=== PATIENT | male | born 1975 | race Caucasian/White ===

== ENCOUNTER 2020-11-26 09:21 | Outpatient (REF) | payer OTHER, SELFPAY ==
[2020-11-26 11:46] LABS: Alanine Aminotransferase 28 U/L (0-40); Albumin Level 4.6 g/dL (3.5-5.0); Alkaline Phosphatase 79 U/L (39-117); Anion Gap 15 (12-20); Aspartate Amino Transferase 27 U/L (5-37); Bilirubin Total 0.5 mg/dL (0.0-1.0); Blood Urea Nitrogen 18 mg/dL (9-16); Calcium 9.6 mg/dL (8.4-10.2); Carbon Dioxide 28 mmol/L (22-29); Chloride 102 mmol/L (96-108); Cholesterol 246 mg/dL; Estimated Glomerular Filt Rate > 60; Glucose Fasting 97 mg/dL (60-99); HDL Cholesterol 57 mg/dL; LDL Cholesterol Calculated 166 mg/dl; Potassium 4.4 mmol/l (3.3-5.1); Sodium 141 mmol/L (135-145); Total Protein 7.5 g/dL (6.5-8.0); Triglycerides 116 mg/dL
[2020-11-26 12:13] LABS: TSH reflex Free T4 0.88 mIU/mL (0.32-4.0)
[2020-11-30 10:43] LABS: Testosterone, Total 674 ng/dL (250-1100)
== END 2020-11-26 09:22 | disposition home or self-care (01) ==
LOC: HO.HMGCLDS 09:21
PROVIDERS: PCP Nurse Practitioner Family; Visit Provider Nurse Practitioner Family
DX: Z00.00 Encounter for general adult medical examination without abnormal findings (principal); N52.9 Male erectile dysfunction, unspecified
CPT/HCPCS: 36415; 80053; 80061; 84403; 84443

== ENCOUNTER → 2020-11-27 10:04 | Outpatient (BNVA) | payer OTHER, SELFPAY | PROVIDERS: PCP Nurse Practitioner Family; Visit Provider Surgery | DX: N62 Hypertrophy of breast (principal) | CPT/HCPCS: 99202 ==

== ENCOUNTER 2021-01-13 13:20 | Outpatient (REF) | payer OTHER, SELFPAY ==
--- NOTE | ~2021-01-13 | MM_ITS ---
EXAMINATION: MM DIAGNOSTIC DIGITAL BREAST TOMOSYNTHESIS, BILATERAL US DIAGNOSTIC ULTRASOUND BREAST, BILATERAL CLINICAL INFORMATION: 45-year-old male with chronic bilateral subareolar breast tenderness and fullness. No discharge or focal palpable mass. No known family history breast cancer. No prior breast imaging. COMPARISON: None (current study represents initial baseline exam). TECHNIQUE: Digital breast tomosynthesis is performed in both the craniocaudal and mediolateral oblique views along with computer-aided detection (CAD). Synthesized 2D images are generated from the tomosynthesis. Additional left MLO view is provided. Ultrasound bilateral breasts is performed using grayscale imaging and color Doppler without and with harmonics. Retroareolar and periareolar breasts are imaged. FINDINGS: There are scattered areas of fibroglandular density (ACR BI-RADS breast composition Category b). There is gynecomastia parenchymal pattern in the bilateral anterior retroareolar breasts, slightly greater on the left. There is no mass or architectural abnormality. There are no abnormal calcifications. No lymphadenopathy. No skin thickening or coarsening of the stromal markings. Ultrasound bilateral breasts demonstrate gynecomastia type pattern retroareolar region. There is no mass or duct ectasia. No focal architectural abnormality. No skin thickening or edema tracking in the soft tissue planes. Results are discussed with the patient at time of visit. MM/MM tomosynthesis diagnostic BI IMPRESSION: Moderate bilateral gynecomastia retroareolar breasts. ASSESSMENT: BI-RADS 2: Benign RECOMMENDATION: Patient should be managed based on the clinical impression.
== END 2021-01-13 13:21 | disposition home or self-care (01) ==
LOC: HO.MAMMO 13:20
PROVIDERS: PCP Nurse Practitioner Family; Visit Provider Surgery
DX: N62 Hypertrophy of breast (principal)
CPT/HCPCS: 76642; 77062; 77066

== ENCOUNTER → 2021-01-28 09:26 | Outpatient (BNVA) | payer OTHER, SELFPAY | PROVIDERS: PCP Nurse Practitioner Family; Visit Provider Surgery | DX: N62 Hypertrophy of breast (principal); N64.4 Mastodynia | CPT/HCPCS: 99212 ==

== ENCOUNTER → 2021-01-29 14:53 | Outpatient (BNVA) | payer OTHER, SELFPAY | PROVIDERS: PCP Nurse Practitioner Family; Visit Provider Urology ==

== ENCOUNTER 2021-02-03 07:40 | Day surgery (SDC) | payer OTHER, SELFPAY ==
--- NOTE | 2021-01-31 07:47 | P.CONAN_ITS ---
Documented by User: Cheyenne Phillips 01/31/21 07:49 HPI - Anesthesia Eval Consult details Narrative: 45yo M for Excision of Breast Mass x2 PMFSH Active Problems Active Problems: All Active Problems (Updated 11/26/20 @ 17:08 by Jalen Cobos, [facility]) Dyslipidemia (Acute) Gynecomastia (Acute) Physical exam (Acute) Erectile dysfunction (Acute) Opiate abuse, episodic (Acute) Past Medical History Medical History Adjustment disorder with mixed anxiety and depressed mood Chronic pain Dyslipidemia Opiate abuse, episodic Family History Family History Mother History of lung cancer Surgical History Surgical History History of left knee surgery Social History Social History Alcohol intake: current Alcohol intake frequency: a few times a month Smoking Status: Never smoker Use of substances other than those prescribed or required for medical reasons: No Substance Use Type Other:: percocet Advance Directives: No Advance Directives Information Provided: Yes Meds Allergies Allergy/AdvReac Type Severity Reaction Status Date / Time No Known Allergies Allergy Verified 11/11/20 09:30 Home Medications Medication Instructions Recorded Confirmed Last Taken Type methadone 10 mg tablet 35 mg PO DAILY PRN tab 10/24/20 01/28/21 Unknown History meloxicam PO 11/11/20 01/28/21 Unknown History Exam Exam Date and Time: January 31, 2021 0747 Assessment and Plan Assessment Anesthesia Assessment: Chart Reviewed Documented by User: Venessa Bender 02/03/21 09:59 PMFSH Past Medical History Medical History Adjustment disorder with mixed anxiety and depressed mood Chronic pain Dyslipidemia Opiate abuse, episodic Family History Family History Mother History of lung cancer Surgical History Surgical History History of left knee surgery Social History Social History Alcohol intake: current Alcohol intake frequency: a few times a month Smoking Status: Never smoker Use of substances other than those prescribed or required for medical reasons: No Substance Use Type Other:: percocet Advance Directives: No Advance Directives Information Provided: Yes Meds Allergies Allergy/AdvReac Type Severity Reaction Status Date / Time No Known Allergies Allergy Verified 11/11/20 09:30 Home Medications Medication Instructions Recorded Confirmed Last Taken Type methadone 10 mg tablet 35 mg PO DAILY PRN tab 10/24/20 01/28/21 Unknown History meloxicam PO 11/11/20 01/28/21 Unknown History Exam Airway Mallampati Class: II TM Dist: >3cm Neck ROM: Full Loose/Missing/Broken Teeth: No Heart: RRR Lungs: CTA Assessment and Plan Assessment Anesthesia Assessment: Anesthesia Plan Discussed and Chart Reviewed Final Anesthetic Review NPO: Yes ASA Class: II Final Preanesthetic Review: Meds/Allgs Chart Reviewed, Consent Obtained/Reviewed and Anes Risks/Benef Reviewed Patient Risk: Low Procedure Risk: Low Anesthetic Plan Anesthetic Plan: GA Disposition: Standard PACU
[2021-02-03 08:01] VITALS: BP 103/54; PULSE 71; RESP 18; TEMP 36.8; O2SAT 97; BMI 32.1
[2021-02-03] MEDS: Lactated Ringers 1,000 ML 100 ML IVCONT (08:20)
--- NOTE | 2021-02-03 10:22 | MHC.SHP ---
Pre-Procedural Eval Section A The patient is an INPATIENT: No Changes since office visit: Yes Patient answered all questions; No Cold of Flu in the past 2 weeks, No New Medical Problems and No Changes in Medication The History & Physical has been completed within 30 days and I have reviewed it.: Yes Section B Chief Complaint: Gynecomastia Allergies: Allergies Allergy/AdvReac Type Severity Reaction Status Date / Time No Known Allergies Allergy Verified 11/11/20 09:30 Plan Diagnosis/Plan: Unchanged I have reviewed the history and physical and performed a pertinent physical examination on my patient. No changes have occurred unless specified.
[2021-02-03 12:10] VITALS: BP 136/67; PULSE 73; RESP 16; TEMP 36.2; O2SAT 100
--- NOTE | 2021-02-03 12:13 | PM.OP ---
Brief Operative Note Date of Service: 02/03/21 Pre-op diagnosis: bilateral breast mass Post-op diagnosis: same Procedure: excision of bilateral breast masses Surgeon: DENA ASIF MD Anesthesia: GLMA Quality Assurance Test Program Manager: Radha Correia Estimated blood loss (mL): 5 Pathology: other (left and right breast mass) Condition: stable Disposition: PACU
[2021-02-03 12:15] VITALS: BP 136/70; PULSE 74; RESP 17; O2SAT 96
[2021-02-03 12:20] VITALS: BP 145/66; PULSE 1; RESP 17; O2SAT 97
--- NOTE | 2021-02-03 12:21 | P.OP_ITS ---
Operative Note Operative Note Date of Service: 02/03/21 Narrative: Preoperative diagnosis: Bilateral breast masses Postoperative diagnosis: Same Procedure: Excision of bilateral breast masses Surgeon: Jalen Florence MD Antenna Engineer: Radha Correia PA-C Anesthesia: General LMA Indications for procedure: 45-year-old male patient with a previous history of anabolic steroid use presenting with a 7 year history of a bilateral breast mass which has not improved after stopping the steroid use. The breast masses are occasionally painful when touched. He denies any bleeding or discharge from the nipple. On examination the patient has a firm tender mass in both breasts so mewhat a centric below the nipple. Operative findings: Patient was found to have bilateral thickened breast tissue suggestive of gynecomastia. Specimen: Bilateral breast masses Estimated blood loss: 5 mL Complications: None Procedure details: Patient was brought to the OR and placed in a supine position. After administering general anesthesia the patient's bilateral breasts were prepped with ChloraPrep and draped in a sterile fashion. A surgical him out was called the consent confirmed. Patient received preoperative antibiotics and Venodyne boots were in place. Local anesthesia consisting of 0.5% Sensorcaine with epinephrine was infiltrated around the nipple on both sides. A curvilinear incision was then made below the left nipple carried down through subcutaneous tissue. Superior and inferior skin flaps were then created. The palpable breast mass was grasped with an Allis clamp. Electrocautery dissection was then used to dissect the entire mass which measured approximately 5-6 cm in diameter. The mass was passed off the table and sent to pathology for further examination. Hemostasis was assured using electrocautery. Attention was then directed to the right breast where again local was infiltrated below the skin and around the nipple. Again a curvilinear incision was made below the nipple-areolar complex and carried down through subcutaneous tissue. Superior and inferior skin flaps were then created. The mass was easily identified and grasped with the Allis clamp. The mass was then completely dissected using electrocautery. After removal of this mass and additional portion of the mass was noted in the superior portion of the breast. This was also excised by grasping with an Allis clamp and using the electrocautery to dissect the lesion completely. Wounds were then checked for hemostasis. Both skin incisions were closed using 3-0 Polysorb suture in the deep breast tissue and dermis in an interrupted fashion. Skin was then closed using a running subcuticular 4 0 Polysorb suture. Steri-Strips 2 x 2 gauze and Tegaderm were then applied. The patient tolerated the procedure well. Sponge, instrument, needle counts reported as correct. Patient was transferred to PACU in stable condition.
[2021-02-03 12:25] VITALS: BP 122/71; PULSE 80; RESP 17; O2SAT 96
[2021-02-03 12:40] VITALS: BP 123/67; PULSE 71; RESP 17; TEMP 36.5; O2SAT 96
== END 2021-02-03 13:05 | disposition home or self-care (01) ==
PROVIDERS: PCP Nurse Practitioner Family; Visit Provider Surgery
PROC: (CPT 19300; principal; 2021-02-03 10:10)
DX: N62 Hypertrophy of breast (principal); F43.23 Adjustment disorder with mixed anxiety and depressed mood; F11.20 Opioid dependence, uncomplicated; G89.29 Other chronic pain; Z79.899 Other long term (current) drug therapy; Z92.241 Personal history of systemic steroid therapy
CPT/HCPCS: 19300; 88305; 88307; J0690; J1100; J2250; J2405; J3010

== ENCOUNTER → 2021-02-13 13:36 | Outpatient (BNVA) | payer OTHER, SELFPAY | PROVIDERS: PCP Nurse Practitioner Family; Visit Provider Surgery | DX: N62 Hypertrophy of breast (principal); L76.34 Postprocedural seroma of skin and subcutaneous tissue following other procedure | CPT/HCPCS: 10160; 99212 ==

== ENCOUNTER → 2021-02-28 13:16 | Outpatient (BNVA) | payer OTHER, SELFPAY | PROVIDERS: PCP Nurse Practitioner Family; Visit Provider Surgery | DX: N62 Hypertrophy of breast (principal) | CPT/HCPCS: 99212 ==

== ENCOUNTER → 2021-05-01 14:35 | Outpatient (BNVA) | payer OTHER, SELFPAY | PROVIDERS: PCP Nurse Practitioner Family; Visit Provider Urology ==

== ENCOUNTER 2021-10-08 14:01 | Outpatient (REF) | payer OTHER, SELFPAY | END 2021-10-08 14:02 | disposition home or self-care (01) | LOC: HO.LNP 14:01 | PROVIDERS: Visit Provider Physician Assistant Medical | DX: Z20.822 Contact with and (suspected) exposure to COVID-19 (principal); B34.9 Viral infection, unspecified | CPT/HCPCS: U0003; U0005 ==

== ENCOUNTER 2022-04-21 04:17 | Emergency (ER) | payer OTHER, SELFPAY ==
[2022-04-21 04:20] VITALS: BP 136/63; PULSE 84; RESP 16; TEMP 37; O2SAT 94; BMI 30.5
[2022-04-21 04:45] LABS: COVID-19 Test Negative (Negative)
[2022-04-21 05:30] LABS: IDNOW Serial# 16C4AD1C; Influenza A Negative (Negative); Influenza B2 Negative (Negative)
--- NOTE | 2022-04-21 05:50 | ED_ITS ---
HPI - General Adult General Chief complaint: General Medical Stated complaint: vomiting, headache (covid exposure) Time Seen by Provider: 04/21/22 04:58 Source: patient Mode of arrival: ambulatory History of Present Illness HPI narrative: 46-year-old male presents with body aches, headache, nausea and states he had a COVID-19 exposure on Wednesday. He also reports being ?sweaty and having chills?. Related Data Home Medications Medication Instructions Recorded Confirmed methadone 10 mg tablet 35 mg PO DAILY tab 07/11/21 Previous Rx's Medication Instructions Recorded tadalafil 10 mg tablet 10 mg PO Q OTHER DAY PRN 90 Days 08/08/21 #90 tab ondansetron 4 mg disintegrating 4 mg PO Q8H PRN #3 tab 04/21/22 tablet Allergies Allergy/AdvReac Type Severity Reaction Status Date / Time No Known Allergies Allergy Verified 10/08/21 10:57 Review of Systems Review of Systems: Pertinent positives and negatives as stated in HPI 10 point review of systems is otherwise negative. PMFSH Past Medical History Source: nursing notes reviewed Medical History Adjustment disorder with mixed anxiety and depressed mood Chronic pain Dyslipidemia Opiate abuse, episodic Surgical History History of left knee surgery Family History Family History Mother History of lung cancer Social History Social History Alcohol intake: current Alcohol intake frequency: a few times a month Patient Tobacco Use Status: Never used Tobacco Advance Directives: No Advance Directives Information Provided: Yes Physical Exam ED Vital Signs: Vital Signs - 24 hr 04/21/22 04:20 Temperature 98.6 F Pulse Rate 84 Respiratory Rate 16 Blood Pressure 136/63 Pulse Oximetry 94 BMI result Body Mass Index 30.5 VITAL SIGNS: Reviewed. GENERAL: Well developed, well nourished, in no acute distress. HEAD: Normocephalic/atraumatic EYES: PERRLA, EOMI EARS: Ext canals without abnormality, TMs non-bulging and non-erythematous NOSE: Nares patent bilateral OROPHARYNX: no oral lesions noted, posterior pharynx clear and non-erythematous without noted tonsillar enlargement/erythema/exudates NECK: Supple, no adenopathy LUNGS: Normal breath sounds. SpO2<94> CARDIOVASCULAR: Regular rate and rhythm without noted murmurs ABDOMEN: Soft, non-tender, non-distended with bowel sounds. NEUROLOGIC: Alert and oriented x 4. Strength and sensation to light touch were grossly intact x 4. Course Course Course Narrative: 46-year-old male with history and clinical presentation viral syndrome with positive COVID-19 exposure. On review of all investigations patient is testing negative for both COVID-19 and influenza. He was provided with combination analgesics, antiemetic, as well as a GI cocktail and states he is feeling somewhat better and is otherwise stable for discharge to home with instructions to isolate. Medical Decision Making Lab Data Labs: Lab Results 04/21/22 04/21/22 Range/Units 04:26 05:09 COVID-19 (YOVANI) Negative (Negative) COVID-19 Clin Com See Note Influenza Type A (GYPSY) Negative (Negative) Influenza Type B (GYPSY) Negative (Negative) Influenza A & B Note See Note Discharge Plan Discharge Clinical Impression: Viral syndrome, Lab test negative for COVID-19 virus, Exposure to COVID-19 virus Patient Disposition: Home, Self-Care Instructions: Viral Syndrome (ED), COVID-19 (Coronavirus Disease 2019) (ED) Additional Instructions: 1. Recommend twfs-loc-cevonog Tylenol and ibuprofen as needed for headache, body aches. Increase water intake and take your antinausea medication as prescribed. 2. You are reporting a COVID-19 exposure and began having symptoms yesterday. You must isolate for 5 days as counted from yesterday. Return to the ER for worsening symptoms. Prescriptions: New ondansetron 4 mg tablet,disintegrating 4 mg PO Q8H PRN (Reason: nausea and vomiting) Qty: 3 0RF No Action tadalafil 10 mg tablet 10 mg PO Q OTHER DAY PRN (Reason: sexual activity) 90 Days Qty: 90 1RF methadone 10 mg tablet 35 mg PO DAILY 0RF Referrals: Jalen Cobos, [facility] [Primary Care Provider] - Stand Alone Forms: Work/School Release
[2022-04-21] MEDS: Magnesium Hydrox/Alum Hydrox 30 ML ORAL.SUSP PO (05:51)
[2022-04-21] MEDS: Lidocaine HCl Viscous 2 % 15 ML SOLUTION 10 ML MUCOUS MEM (05:51)
[2022-04-21] MEDS: Acetaminophen 325 MG TABLET 975 MG PO (05:51)
[2022-04-21] MEDS: Ibuprofen 400 MG TABLET PO (05:52)
[2022-04-21] MEDS: Ondansetron ODT 4 MG TAB.RAPDIS TRANSLINGU (05:57)
== END 2022-04-21 06:03 | disposition home or self-care (01) ==
PROVIDERS: Emergency Provider Student in an Organized Health Care Education/Training Program; PCP Nurse Practitioner Family
DX: B34.9 Viral infection, unspecified (principal); Z20.822 Contact with and (suspected) exposure to COVID-19; R11.0 Nausea; R51.9 Headache, unspecified; M79.10 Myalgia, unspecified site
CPT/HCPCS: 87502; 87635; 99282; 99283

== ENCOUNTER 2022-05-29 07:31 | Emergency (ER) | payer OTHER, SELFPAY ==
--- NOTE | ~2022-05-29 | XR_ITS ---
EXAMINATION: XR THORACIC SPINE CLINICAL INFORMATION: Back pain status post fall. COMPARISON: None TECHNIQUE: 3 views of the thoracic spine were obtained. FINDINGS: There is normal thoracic kyphosis and spinal alignment. Mild multilevel degenerative changes are seen. There is no acute fracture. The visualized posterior ribs are intact. The soft tissues are unremarkable. XR/XR thoracic spine 3V IMPRESSION: Mild multilevel degenerative changes without overt fracture.
--- NOTE | ~2022-05-29 | CT_ITS ---
EXAMINATION: CT HEAD WITHOUT CONTRAST CLINICAL INFORMATION: Head pain status post fall. COMPARISON: None TECHNIQUE: Contiguous axial imaging was performed from the skull base to vertex without intravenous administration of contrast. Coronal and sagittal reformatted images were obtained. This CT examination was performed using dose optimization techniques as appropriate, variously including the following: *Automated exposure control *Adjustment of mA and/or kV according to patient size (this includes techniques or standardized protocols for targeted exams where dose is matched to indication/reason for exam; i.e. extremities or head) *Use of iterative reconstruction technique DLP: 810.45 mGy-cm FINDINGS: There is no evidence of acute intracranial hemorrhage or territorial infarction. No abnormal mass effect or midline shift is seen. Galvez to white matter differentiation is well preserved. No extra-axial fluid collections are identified. The ventricles are normal in size. There is no abnormal attenuation within the brain parenchyma. The osseous structures and soft tissues are normal. The mastoid air cells and visualized portions of the paranasal sinuses are well aerated. CT/CT head/brain wo con IMPRESSION: No acute cardiopulmonary process.
--- NOTE | ~2022-05-29 | CT_ITS ---
EXAMINATION: CT CERVICAL SPINE WITHOUT CONTRAST CLINICAL INFORMATION: Neck pain status post fall. COMPARISON: None TECHNIQUE: Multiple axial images of the cervical spine were obtained without the administration of intravenous contrast. Coronal and sagittal reformatted images were obtained. This CT examination was performed using dose optimization techniques as appropriate, variously including the following: *Automated exposure control *Adjustment of mA and/or kV according to patient size (this includes techniques or standardized protocols for targeted exams where dose is matched to indication/reason for exam; i.e. extremities or head) *Use of iterative reconstruction technique DLP: 627.40 mGy-cm FINDINGS: There is straightening of the normal cervical lordosis with normal spinal alignment. The vertebral bodies are intact. Moderate anterior osteophyte formation is seen at C4-C5. Mild anterior osteophyte formation is seen at C5-C6 and C6-C7. The neural foramina are patent. Mild bilateral facet arthropathy is seen. The spinous processes are intact. The odontoid process is intact with mild to moderate articular degenerative changes. The prevertebral soft tissues are unremarkable. There is no lymphadenopathy. The thyroid gland is unremarkable. The visualized lung apices are clear. CT/CT cervical spine wo con IMPRESSION: 1. Straightening of the normal cervical lordosis may be secondary to positioning and/or muscle spasm. No acute osseous abnormality.
[2022-05-29 07:50] VITALS: BP 126/72; PULSE 95; RESP 16; TEMP 36.7; O2SAT 96; BMI 30.5
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
--- NOTE | 2022-05-29 08:37 | PC.NURSE ---
c/o right lateral neck pain and headache. no neuro deficits. no active vomiting but is reported. perrla. skin pwd. equal hand grasps and steady gait. aware ofplan of care.
== END 2022-05-29 11:33 | disposition home or self-care (01) ==
PROVIDERS: Emergency Provider Emergency Medicine; PCP Nurse Practitioner Family
DX: S06.0X0A Concussion without loss of consciousness, initial encounter (principal); S16.1XXA Strain of muscle, fascia and tendon at neck level, initial encounter; V18.0XXA Pedal cycle driver injured in noncollision transport accident in nontraffic accident, initial encounter; Y93.55 Activity, bike riding; Y92.828 Other wilderness area as the place of occurrence of the external cause; Y99.8 Other external cause status
CPT/HCPCS: 70450; 72072; 72125; 99283; 99284

== ENCOUNTER 2022-06-12 05:47 | Emergency (ER) | payer OTHER, SELFPAY ==
--- NOTE | ~2022-06-12 | CT_ITS ---
EXAMINATION: CT OF THE HEAD AND CERVICAL SPINE WITHOUT CONTRAST CLINICAL INFORMATION: Head injury, pain COMPARISON: 05/29/2022 TECHNIQUE: Contiguous axial imaging was performed from the vertex to the thoracic inlet, through the head and cervical spine, without intravenous administration of contrast. Coronal and sagittal reformatted images through the cervical spine were obtained on the technologists workstation. Total exam dose-length product: 841+ 824 mGy-cm This CT examination was performed using dose optimization techniques as appropriate, variously including the following: *Automated exposure control *Adjustment of mA and/or kV according to patient size (this includes techniques or standardized protocols for targeted exams where dose is matched to indication/reason for exam; i.e. extremities or head) *Use of iterative reconstruction technique FINDINGS: Head: No acute intracranial hemorrhage. No extra-axial fluid collection. Galvez-white matter differentiation is preserved without evidence of acute large vessel territory ischemia. Symmetric, concordant ventricles and sulci; no hydrocephalus. No mass effect or midline shift. There is no abnormal attenuation within the brain parenchyma. The osseous structures and soft tissues are normal. Mild ethmoid, sphenoid, and maxillary mucosal thickening. Cervical spine: Normal pre-vertebral soft tissues. No fracture seen. Normal alignment. Disk heights are maintained. Mild anterior osteophytosis at C4-C5, C5-C6, and C6-C7. Thyroid homogeneous with no nodules seen. Lung apices are clear. No cervical lymphadenopathy, mass, or fluid collection. CT/CT head/brain wo con IMPRESSION: No acute intracranial pathology. No acute osseous abnormality of the cervical spine.
--- NOTE | ~2022-06-12 | CT_ITS ---
EXAMINATION: CT OF THE HEAD AND CERVICAL SPINE WITHOUT CONTRAST CLINICAL INFORMATION: Head injury, pain COMPARISON: 05/29/2022 TECHNIQUE: Contiguous axial imaging was performed from the vertex to the thoracic inlet, through the head and cervical spine, without intravenous administration of contrast. Coronal and sagittal reformatted images through the cervical spine were obtained on the technologists workstation. Total exam dose-length product: 841+ 824 mGy-cm This CT examination was performed using dose optimization techniques as appropriate, variously including the following: *Automated exposure control *Adjustment of mA and/or kV according to patient size (this includes techniques or standardized protocols for targeted exams where dose is matched to indication/reason for exam; i.e. extremities or head) *Use of iterative reconstruction technique FINDINGS: Head: No acute intracranial hemorrhage. No extra-axial fluid collection. Galvez-white matter differentiation is preserved without evidence of acute large vessel territory ischemia. Symmetric, concordant ventricles and sulci; no hydrocephalus. No mass effect or midline shift. There is no abnormal attenuation within the brain parenchyma. The osseous structures and soft tissues are normal. Mild ethmoid, sphenoid, and maxillary mucosal thickening. Cervical spine: Normal pre-vertebral soft tissues. No fracture seen. Normal alignment. Disk heights are maintained. Mild anterior osteophytosis at C4-C5, C5-C6, and C6-C7. Thyroid homogeneous with no nodules seen. Lung apices are clear. No cervical lymphadenopathy, mass, or fluid collection. CT/CT cervical spine wo con IMPRESSION: No acute intracranial pathology. No acute osseous abnormality of the cervical spine.
[2022-06-12 06:23] VITALS: BP 117/70; PULSE 77; RESP 18; TEMP 36.2; O2SAT 96; BMI 30.5
[2022-06-12 07:51] VITALS: BP 132/79; PULSE 72; RESP 18; O2SAT 96
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
== END 2022-06-12 10:17 | disposition home or self-care (01) ==
PROVIDERS: Emergency Provider Emergency Medicine Emergency Medical Services; PCP Nurse Practitioner Family
DX: S06.0X0A Concussion without loss of consciousness, initial encounter (principal); V18.0XXA Pedal cycle driver injured in noncollision transport accident in nontraffic accident, initial encounter; Y93.55 Activity, bike riding; Y92.414 Local residential or business street as the place of occurrence of the external cause; Y99.9 Unspecified external cause status
CPT/HCPCS: 70450; 72125; 99284

== ENCOUNTER 2023-06-22 08:55 | Outpatient (AMB) | payer OTHER, SELFPAY ==
--- NOTE | 2023-06-22 07:18 | MHC.PC.OV ---
Intake Visit Reasons: [id number] referral Allergies No Known Allergies Allergy (Verified 06/12/22 06:23) Medication List - Last Reconciled 06/22/23 by SHELLEY Do- bupropion HCl 150 mg PO DAILY bupropion HCl 300 mg PO DAILY cyclobenzaprine 10 mg PO BEDTIME PRN lidocaine 5% 1 patch topical DAILY methadone 35 mg PO DAILY naproxen 500 mg PO BID PRN ondansetron 4 mg PO Q8H PRN ondansetron 4 mg PO Q8H PRN tadalafil 10 mg PO Q OTHER DAY PRN 30 days HPI [phone] referral HPI Details Pt reports flexing of his right hand (appears to be 4th finger, seen on video). ? dupuytren's contracture. Will refer to hand specialist. Pt also c/o left-sided lower back pain. He denies any radicular symptoms. Will send cyclobenzaprine. Denies any signs of cauda equina. [facility] Medical History Adjustment disorder with mixed anxiety and depressed mood Chronic pain Dyslipidemia Opiate abuse, episodic Surgical History History of left knee surgery Family History Mother History of lung cancer Social History Alcohol intake: current Alcohol intake frequency: a few times a month Patient Tobacco Use Status: Never used Tobacco Review of Systems Const Reports as per HPI Physical exam (Primary Care) Tobacco/Smoking Status: Tobacco use Status Patient Tobacco Use Status Never used Tobacco 06/22/23 07:18 Const General: cooperative Orientation/consciousness: patient oriented x3 Neuro General: patient oriented x3 Psych Appearance: grossly normal Mental Status: mental status grossly normal Speech and movement: Clear speech present Affect: normal affect Attitude: cooperative Thought process: Normal thought process present Thought content: Normal thought content present Insight: Good insight present (Psych) Judgement: Good judgement present (Psych) Telehealth Telehealth Location of provider rendering services: practice address Location of patient: address on file Patient Identification confirmed using: Name, : Yes Telehealth method: video Patient verbally consented to treatment: Yes Patient verbally consented to billing insurance company: Yes Patient informed of any privacy concerns related to visit: Yes Minutes spent on Phone/Video with Pt.: 10 Assessment and Plan Assessment & Plan (1) Dupuytren contracture: Code(s): M72.0 - Palmar fascial fibromatosis [Dupuytren] Plan The patient agreed to the use of a medical assistant secretary for this encounter. Scribed for EDMOND Meléndez by Adelina Monreal medical assistant secretary, on 06/22/2023 at 07:15 EST. Orders: Referrals Orthopedics Referral M72.0 - Palmar fascial fibromatosis [Dupuytren] Medications: New cyclobenzaprine 10 mg PO BEDTIME PRN 30 tabs 0RF muscle spasm Changed From tadalafil 10 mg PO Q OTHER DAY 90 days PRN 90 tabs 1RF sexual activity N52.01 - Erectile dysfunction due to arterial insufficiency, N52.9 - Male erectile dysfunction, unspecified To tadalafil 10 mg PO Q OTHER DAY PRN 30 tabs 0RF sexual activity 30 days N52.01 - Erectile dysfunction due to arterial insufficiency, N52.9 - Male erectile dysfunction, unspecified Refilled cyclobenzaprine 10 mg PO BEDTIME PRN 30 tabs 0RF muscle spasm Coding Level of Care Code Tele Est Pt Level 3 (86909) Diagnoses Dupuytren contracture M72.0
== END 2023-06-22 09:59 | disposition home or self-care (01) ==
PROVIDERS: PCP Nurse Practitioner Family; Visit Provider Nurse Practitioner Family
DX: M72.0 Palmar fascial fibromatosis [Dupuytren] (principal)
CPT/HCPCS: 99213

== ENCOUNTER 2023-08-11 09:47 | Outpatient (AMB) | payer OTHER, SELFPAY ==
--- NOTE | 2023-08-11 09:52 | A.OFFVIS_ITS ---
Intake Intake Visit Reasons: 6 month follow up in office Intake Note: Patient presents today for a follow-up on Erectile Dysfunction, pt of DR Chen: Meds- Tadalafil Allergies to Antibiotic- No Known Allergies Blood Thinner- None Allergies No Known Allergies Allergy (Verified 08/17/23 16:26) Medication List - Last Reviewed 08/11/23 by STEVE Ochoa atomoxetine (Strattera) 40 mg PO DAILY buprenorphine-naloxone 8-2 mg (Suboxone) film sublingual bupropion HCl 300 mg PO DAILY cyclobenzaprine 10 mg PO BEDTIME PRN ondansetron 4 mg PO Q8H PRN tadalafil (Cialis) 10 mg PO DAILY HPI HPI Comments History of Present Illness Details Ankit is a 47-year-old male who presents today to the office for a follow-up. 08/11/2023? He is followed today for erectile dysfunction. He has seen Siddhartha Canas on 05/12/2023 for erectile dysfunction and has been prescribe daily Tadalafil 10 mg. He is here for 6 month FU. He has been taking tadalafil 10 mg as prescribed. Patient states that he noticed blood in the stool in the past. Medication list reviewed and reconciled with the patient. Evaluation today?UA? leukocytes: negative; blood: trace. Plan: PSA, fasting glucose, LH, FSH, and fasting testosterone was ordered. Referred to GI for the concerns of haemorrhoids. Follow-up with Dr. Chen in 3 months. [facility] Medical History Chronic pain Dyslipidemia Adjustment disorder with mixed anxiety and depressed mood Opiate abuse, episodic Surgical History History of left knee surgery Family History Mother History of lung cancer Social History (Updated 08/17/23 @ 16:28 by JARED Seth) Alcohol intake: current Alcohol intake frequency: a few times a month Patient Tobacco Use Status: Never used Tobacco Current occupational status: unemployed Current occupation: rt hand Review of Systems Const All systems reviewed & are unremarkable except as noted in HPI and below Reports no additional complaints Eyes Reports no additional complaints ENT Reports no additional complaints Card Denies dyspnea Resp Denies cough and Denies dyspnea GI Reports no additional complaints Musc Reports no additional complaints Skin/Breast Denies rash and Denies unusual bruising Neuro Reports no additional complaints Psych Reports no additional complaints Endo Reports no additional complaints Kye/Lymph Reports no additional complaints Aller/Immun Reports no additional complaints Results AMB Urinalysis, Automated UA Leukoctes 0 Myriam/uL Last Edit by Terence Gómez [facility] on 08/11/23 10:19 UA Nitrite Negative Last Edit by Terence Gómez [facility] on 08/11/23 10:19 UA Urobilinogen 0.2 mg/dL Last Edit by Terence Gómez [facility] on 08/11/23 10:1 9 UA Protein 0 mg/dL Last Edit by Terence Gómez [facility] on 08/11/23 10:19 UA pH 5.5 Last Edit by Terence Gómez [facility] on 08/11/23 10:19 UA Blood 10 Luciano/uL Last Edit by Terence Gómez [facility] on 08/11/23 10:19 UA Specific [place] 1.030 Last Edit by Terence Gómez [facility] on 08/11/23 10: 19 UA Ketone Negative Last Edit by Terence Gómez [facility] on 08/11/23 10:19 UA Bilirubin 0 mg/dL Last Edit by Terence Gómez [facility] on 08/11/23 10:19 UA Glucose 0 mg/dL Last Edit by Terence Gómez [facility] on 08/11/23 10:19 Results Reviewed Results Reviewed: Laboratory Last Values Urine pH (Auto) 5.5 08/11/23 10:18 Specific [place] (Auto) 1.030 08/11/23 10:18 Urine Protein (Auto) 0 mg/dL 08/11/23 10:18 Glucose (UA)(Auto) 0 mg/dL 08/11/23 10:18 Urine Ketones (Auto) Negative 08/11/23 10:18 Urine Blood (Auto) 10 Luciano/uL 08/11/23 10:18 Urine Nitrite (Auto) Negative 08/11/23 10:18 Urine Bilirubin (Auto) 0 mg/dL 08/11/23 10:18 Urine Urobilinogen (Auto) 0.2 mg/dL 08/11/23 10:18 Leukocyte Esterase (Auto) 0 Myriam/uL 08/11/23 10:18 Assessment & Plan Assessment & Plan (1) Erectile dysfunction: Code(s): N52.9 - Male erectile dysfunction, unspecified (2) Blood in stool: Code(s): K92.1 - Melena Plan PSA, fasting glucose, LH, FSH, and fasting testosterone was ordered.? Referred to GI for the concerns of haemorrhoids. Follow-up with Dr. Chen in 3 months. Orders: Orders AMB Urinalysis Automated 08/11/23 Z13.9 - Encounter for screening, unspecified Medications: New buprenorphine-naloxone 8-2 mg (Suboxone) film sublingual tadalafil (Cialis) [facility] [id number] [facility] Group [id number] 10 mg PO DAILY 30 tabs 3RF Refilled ondansetron 4 mg PO Q8H PRN 20 tabs 0RF nausea and vomiting Patient Instructions: The patient had an opportunity to ask questions regarding treatment plan. All questions were answered. Imaging, Laboratory studies and physical exam results were discussed and reviewed in detail. No major barriers to understanding were identified. The patient expressed understanding and agreement with the above treatment plan.? ? ? The patient is aware they should contact our office by phone for worsening of their current condition or the appearance of new symptoms. Compliance is encouraged with any medications and followup testing that is ordered.? ? ? It is a privilege to be allowed the opportunity to participate in the urologic care of your patient. If you have any questions or concerns regarding treatment for the above conditions please do not hesitate to contact me. The office telephone contact is [phone].? ? ? This note is constructed in part using voice recognition software. While every effort has been made to ensure accuracy manager creative errors may have been included.? ? ? Yours sincerely,? ? ? Waldo Wilson MD? Coding Level of Care Code Est Pt Level 4 (83892) Diagnoses Erectile dysfunction N52.9 Blood in stool K92.1
== END 2023-08-11 11:04 | disposition home or self-care (01) ==
PROVIDERS: PCP Nurse Practitioner Family; Visit Provider Urology
DX: N52.9 Male erectile dysfunction, unspecified (principal); K92.1 Melena
CPT/HCPCS: 99214

== ENCOUNTER → 2023-08-11 09:47 | Outpatient (BNVA) | payer OTHER, SELFPAY | PROVIDERS: PCP Nurse Practitioner Family; Visit Provider Urology | DX: N52.9 Male erectile dysfunction, unspecified (principal); K92.1 Melena | CPT/HCPCS: 81003; 99212 ==

== ENCOUNTER 2023-08-17 15:08 | Outpatient (AMB) | payer OTHER, SELFPAY ==
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
[2023-08-17 16:26] VITALS: BMI 31.2
== END 2023-08-17 17:06 | disposition home or self-care (01) ==
PROVIDERS: PCP Nurse Practitioner Family; Visit Provider Orthopaedic Surgery
DX: S66.819A Strain of other specified muscles, fascia and tendons at wrist and hand level, unspecified hand, initial encounter (principal)
CPT/HCPCS: 99203

== ENCOUNTER → 2023-08-17 15:08 | Outpatient (BNVA) | payer OTHER, SELFPAY | PROVIDERS: PCP Nurse Practitioner Family; Visit Provider Orthopaedic Surgery ==

== ENCOUNTER 2023-10-21 13:21 | Outpatient (AMB) | payer OTHER, SELFPAY ==
--- NOTE | 2023-10-21 13:25 | MHC.PC.OV ---
Vital Signs 10/21/23 13:27 Height 6 ft Weight 265 lb BMI 35.9 BP 130/78 Blood Pressure Location Rt brachial Position Sitting Pulse 104 H Pulse Source Pulse Oximeter Pulse Oximetry (%) 98 Oxygen Delivery Method Room Air Intake Visit Reasons: Annual Physical Intake Note: Patient here for Physical Exam, he would like to talk about back pain, and left knee pain. Allergies No Known Allergies Allergy (Verified 10/21/23 13:28) Tobacco use date assessed: 10/21/23 Dental Screening Dental Screen Date: 10/21/23 Did you have a dental visit in the last 12 months?: Yes Did you have a dental problem in the last 6 months where you did not have access to dental care?: No Was dental information given to patient?: Patient has dentist HPI Annual Physical HPI Details Pt is here for a PE. Will order labs. Pt has an upcoming appointment with GI and will speak to them about having a colon screen. Pt c/o left knee pain. He has a hx of meniscal repair in 2012. Pt reports pain to his medial meniscus (mostly with pivoting) with extensive swelling and crepitus. Will refer to ortho. Pt has followed up with ortho due to a tendon rupture of his right ring finger. [facility] Medical History Chronic pain Dyslipidemia Adjustment disorder with mixed anxiety and depressed mood Opiate abuse, episodic Surgical History History of left knee surgery Family History Mother History of lung cancer Social History (Updated 08/17/23 @ 16:28 by Felicia Benavides [facility] Housing: Apartment Alcohol intake: current Alcohol intake frequency: a few times a month Patient Tobacco Use Status: Never used Tobacco Current occupational status: unemployed Current occupation: rt hand Cognitive needs: No Hearing needs: No Vision needs: No Questionnaire PHQ-9 Over the last 2 weeks, how often have you been bothered by any of the following problems? 1. Little interest or pleasure in doing things: not at all 2. Feeling down, depressed, or hopeless: not at all 3. Trouble falling or staying asleep, or sleeping too much: not at all 4. Feeling tired or having little energy: not at all 5. Poor appetite or overeating: not at all 6. Feeling bad about yourself - or that you are a failure or have let yourself or your family down: several days 7. Trouble concentrating on things, such as reading the newspaper or watching television: several days 8. Moving or speaking so slowly that other people could have noticed. Or the opposite - being so fidgety or restless that you have been moving around a lot more than usual: not at all 9. Thoughts that you would be better off or of hurting yourself in some way: not at all Total score: 2 Depression Screening Interpretation: Negative Depression Screening Done: Yes 76729 - PHQ-9 Billing: Yes Source: Developed by Drs. Ferdinand Peña, Bianca Lindsey, Juanjo Dominguez and colleagues, with an educational maryjane from [employer]. AUDIT C Alcohol Use Questionnaire (AUDIT-C) 1. How often do you have a drink containing alcohol?: Never 3. How often do you have six or more drinks on one occasion?: Never Total Score: 0 Score Reviewed/Action Taken: No DIMITRI-7 AMB Questionnaire DIMITRI-7 Date DIMITRI - 7 assessed: 10/21/23 Feeling nervous, anxious, or on edge: 0 = Not at all Not being able to stop or control worryin = Not at all Worrying too much about different things: 1 = Several days Trouble relaxin = Not at all Being so restless that it is hard to sit still: 0 = Not at all Becoming easily annoyed or irritable: 0 = Not at all Feeling afraid as if something awful might happen: 0 = Not at all Total DIMITRI-7 score (0-4 normal; 5-9 mild; 10-14 moderate; 15-21 severe): 1 Source: Developed by Drs. Ferdinand Peña, Bianca Lindsey, Juanjo Dominguez and colleagues, with an educational maryjane from [employer]. DIMITRI-7 Assessment Billing DIMITRI-7 Assessment Tool: DIMITRI-7 Assessment 94434 Review of Systems Const Denies chills and Denies fever(s) Eyes Denies blurry vision ENT Denies vertigo, Denies dizziness and Denies sore throat Card Denies chest pain at rest, Denies chest pain with activity, Denies diaphoresis, Denies dyspnea and Denies dyspnea on exertion Resp Denies cough, Denies dyspnea, Denies dyspnea on exertion and Denies wheezing GI Denies abdominal pain, Denies melena, Denies hematochezia, Reports constipation (intermittent), Denies diarrhea and Denies loose stools Denies hematuria Musc Denies numbness and Denies tingling Skin/Breast Denies lesions Neuro Denies vertigo, Denies dizziness, Denies numbness and Denies tingling Psych Denies anxiety, Denies depression, Denies homicidal ideation, Denies suicidal ideation and Denies other (substance abuse) Aller/Immun Denies wheezing Physical exam (Primary Care) Vital Signs: Last Vital Signs Pulse 104 H 10/21/23 13:27 BP 130/78 10/21/23 13:27 Pulse Ox 98 10/21/23 13:27 Oxygen Delivery Method Room Air 10/21/23 13:27 BMI result Body Mass Index 35.9 Tobacco/Smoking Status: Tobacco use Status Tobacco use date assessed 10/21/23 10/21/23 13:32 Patient Tobacco Use Status Never used Tobacco 10/21/23 13:26 Depression Screening Interpretation: Negative Const General: cooperative Nutritional Appearance: well nourished and obese Orientation/consciousness: patient oriented x3 HENMT Head: Yes normal to inspection, Yes normocephalic and Yes atraumatic Ears: TM's normal bilaterally Eyes General: appearance normal, both eyes and all related structures Alignment and Position: alignment normal and position normal Neck Neck: Yes normal visual inspection and Yes no lymphadenopathy Thyroid: Thyroid normal Resp Effort & Inspection: normal respiratory effort Auscultation: clear to auscultation bilaterally Cardio Rate: tachycardic Rhythm: regular rhythm Heart sounds: S1 normal heart sound present, S2 normal heart sound present and no murmurs GI Palpation (GI): Soft to palpation and nontender Auscultation: normal bowel sounds Male General Exam: Yes normal external exam Penis: normal penis Scrotum: scrotum normal, testes descended bilaterally and no inguinal hernias Testes: no testicular mass Skin Rashes: no rashes Neuro General: patient oriented x3, moves all extremities, no focal motor deficits and deep tendon reflexes 2+ bilaterally Romberg Test: Negative Extrem Other: left knee: + mcmurrays, unable to fully extend knee, swelling to left medial knee Psych Appearance: grossly normal Mental Status: mental status grossly normal Speech and movement: Normal speech and movement present Affect: normal affect Attitude: cooperative Thought process: Normal thought process present Thought content: Normal thought content present Insight: Good insight present (Psych) Judgement: Good judgement present (Psych) Assessment and Plan Assessment & Plan (1) Left knee pain: Comment: Hx of meniscal repair 2012 Code(s): M25.562 - Pain in left knee Plan: Referred to ortho (2) Tachycardia: Code(s): R00.0 - Tachycardia, unspecified Plan: EKG done in office (3) Physical exam: Code(s): Z00.00 - Encounter for general adult medical examination without abnormal findings Plan The patient agreed to the use of a medical record coder for this encounter. Scribed for EDMOND Meléndez by Adelina Monreal medical record coder, on 10/21/2023 at 13:45 EST. Orders: Orders Comprehensive [place]. Panel Fast Today Z00.00 - Encounter for general adult medical examination without abnormal findings UA CC w/rflx Micro + Cult Today Z00.00 - Encounter for general adult medical examination without abnormal findings AMB EKG-In Office Today R00.0 - Tachycardia, unspecified Complete Blood Count Auto Diff Today Z00.00 - Encounter for general adult medical examination without abnormal findings TSH reflex Free T4 Today Z00.00 - Encounter for general adult medical examination without abnormal findings Lipid Panel Today Z00.00 - Encounter for general adult medical examination without abnormal findings Referrals Orthopedics Referral M25.562 - Pain in left knee Coding Level of Care Code Est Pt Prev Care 40-64y(52485) Diagnoses Left knee pain M25.562 Tachycardia R00.0 Physical exam Z00.00 Additional Codes DIMITRI-7 Assessment Billing - DIMITRI-7 Assessment Tool: DIMITRI-7 Assessment 51832 ([id number])
[2023-10-21 13:27] VITALS: BP 130/78; PULSE 104; O2SAT 98; BMI 35.9
== END 2023-10-21 15:30 | disposition home or self-care (01) ==
PROVIDERS: PCP Nurse Practitioner Family; Visit Provider Nurse Practitioner Family
DX: M25.562 Pain in left knee (principal); R00.0 Tachycardia, unspecified; Z00.00 Encounter for general adult medical examination without abnormal findings
CPT/HCPCS: 99396

== ENCOUNTER 2023-10-29 08:57 | Outpatient (AMB) | payer OTHER, SELFPAY ==
--- NOTE | 2023-10-29 09:01 | MHC.OFFVIS ---
Intake Vital Signs 10/29/23 09:16 Height 6 ft Weight 262 lb 5.601 oz BMI 35.6 BP 142/71 H Blood Pressure Location Rt brachial Position Sitting Pulse 63 Intake Visit Reasons: Melena Intake Note: Mr. Chawla presents to in office visit today as a new patient referred for melena. CC: Patient states he sometimes gets constipated, rectal pain, and blood in stools. Per patient he takes suboxone and he believes this is the reason why he gets constipated. Patient has never had a colonoscopy. [employer] Required: No Accompanied by: Self / Same As Patient Allergies No Known Allergies Allergy (Verified 10/29/23 09:22) HPI Melena HPI Details 47-year-old male here for initial evaluation of hematochezia. He is referred by Jalen Cobos [place] [facility] [place]. PMX History of episodic opiate abuse-on methadone therapy, now on suboxone High cholesterol Chronic pain syndrome Tachycardia - one time thing Left knee pain Rupture of the flexure sore tendon of the hand Dupuytren contracture Hemorrhoid prolapse Gynecomastia Erectile dysfunction Depression/anxiety * SURGICAL HISTORY Knee surgery - meniscus * ALLERGIES: NKDA * [employer] LABS: no current labs TODAY'S VISIT He tells me that when he strains with stooling he will have RBR on the TT and some slignt on stools. No real CIC except occasionally, but is on suboxone. He drinks a lot of water. More gas that in the past. This has been for the past year. No diet changes, no new medications, no illness. Having swings of fatigue, will occur suddenly as sleepiness during the day. He does not know if he snores. He denies any upper GI problems. He denies any cardiac or respiratory problems. There are no prior problems with anesthesia or sedation. NO ID problems NO known FHX of crc or polyps. [facility] Medical History Hx of gynecomastia Opiate abuse, episodic Chronic pain Dyslipidemia Adjustment disorder with mixed anxiety and depressed mood Surgical History History of left knee surgery Family History Mother History of lung cancer Maternal Grandmother Pancreatic cancer Social History Housing: Apartment Alcohol intake: current Alcohol intake frequency: a few times a month Patient Tobacco Use Status: Never used Tobacco Current occupational status: unemployed Current occupation: rt hand Cognitive needs: No Hearing needs: No Vision needs: No Review of Systems Const Denies fatigue, Denies fever(s), Denies night sweats, Denies poor appetite and Denies weight loss ENT Reports Normal hearing present, Denies dental pain, Denies dysphagia, Denies hearing loss, Denies mouth pain, Denies odynophagia, Denies throat swelling, Denies tongue swelling and Reports other (Dentition adequate) Card Reports no additional complaints Resp Reports no additional complaints GI Denies abdominal pain, Denies melena, Denies bloating, Reports hematochezia, Denies constipation, Denies GI cramping, Denies dysphagia, Denies excessive flatus, Denies early satiety, Denies heartburn, Denies diarrhea, Denies nausea, Denies odynophagia, Denies vomiting and Denies hematemesis Skin/Breast Denies pruritus, Denies lesions, Denies rash and Denies jaundice Neuro Reports Normal hearing present and Denies Abnormal speech present Endo Denies fatigue Aller/Immun Denies throat swelling and Denies tongue swelling Physical Exam Vital Signs: Last Vital Signs Pulse 63 10/29/23 09:16 BP 142/71 H 10/29/23 09:16 BMI result Body Mass Index 35.6 Const General: cooperative, no acute distress, well developed and well groomed Nutritional Appearance: well nourished and overweight Orientation/consciousness: oriented to person, oriented to place and oriented to time Limitations: No language barrier HEENT Head: Yes normocephalic and Yes atraumatic Eyes General: appearance normal, both eyes and all related structures Pupils: Equal, round and reactive pupils present Neck Neck: Yes normal visual inspection and Yes no lymphadenopathy Thyroid: Thyroid normal Resp Effort & Inspection: normal respiratory effort and able to speak in complete sentences Auscultation: clear to auscultation bilaterally Cardio Rate: regular rate Rhythm: regular rhythm Heart sounds: Normal, physiologic split S2 sound present Peripheral pulses: radial pulses present and posterior tibial pulses present GI Inspection: No distended, No Abdominal panniculus present and Yes obesity Palpation (GI): Soft to palpation, nontender, no guarding, not rigid and No hepatosplenomegaly present Percussion: Yes normal to percussion Auscultation: normal bowel sounds Rectal Exam - Male: Yes deferred Skin General skin exam: no rashes or lesions noted, turgor normal, skin not dry, no jaundice, No spider nevi and no striae Rashes: no rashes Nails: normal Neuro General: oriented to person, oriented to place and oriented to time Cranial nerves: Yes Equal, round and reactive pupils present and Yes Normal hearing present Speech: No Abnormal speech present Extrem General: Yes normal to inspection, No clubbing, No cyanosis and No edema Psych Appearance: grossly normal and well kempt Mental Status: mental status grossly normal Speech and movement: Normal speech and movement present Affect: normal affect Attitude: cooperative Thought process: Normal thought process present and not confabulating Thought content: Normal thought content present Insight: Fair insight present (Psych) Judgement: Fair judgement present (Psych) Assessment & Plan Assessment & Plan (1) Pre-op examination: Code(s): Z01.818 - Encounter for other preprocedural examination (2) Opiate abuse, episodic: Comment: On Suboxone therapy currently Code(s): F11.10 - Opioid abuse, uncomplicated Plan He tells me that when he strains with stooling he will have RBR on the TT and some slignt on stools. No real CIC except occasionally, but is on suboxone. He drinks a lot of water. More gas that in the past. This has been for the past year. No diet changes, no new medications, no illness. Having swings of fatigue, will occur suddenly as sleepiness during the day. He does not know if he snores. He denies any upper GI problems. He denies any cardiac or respiratory problems. There are no prior problems with anesthesia or sedation. NO ID problems NO known FHX of crc or polyps. Orders: Orders Comprehensive Met. Panel Today F11.10 - Opioid abuse, uncomplicated, Z01.818 - Encounter for other preprocedural examination Colonoscopy - GI Use Only Today F11.10 - Opioid abuse, uncomplicated, Z01.818 - Encounter for other preprocedural examination Complete Blood Count Auto Diff Today F1.10 - Opioid abuse, uncomplicated, Z01.818 - Encounter for other preprocedural examination TSH reflex Free T4 Today Z00.00 - Encounter for general adult medical examination without abnormal findings, Z01.818 - Encounter for other preprocedural examination Medications: New sod picosulf-mag ox-citric ac 10 mg-3.5 gram- 12 gram/160 mL (Clenpiq) take first dose at 5-9PM evening before colonoscopy; 2nd dose the next day approximately 5 hrs before colonoscopy 160 mL PO DAILY 320 mL 0RF Coding Level of Care Code New Pt Level 3 (97945) Diagnoses Pre-op examination Z.818 Opiate abuse, episodic F110
[2023-10-29 09:16] VITALS: BP 142/71; PULSE 63; BMI 35.6
== END 2023-10-29 11:05 | disposition home or self-care (01) ==
PROVIDERS: PCP Nurse Practitioner Family; Visit Provider Nurse Practitioner
DX: Z01.818 Encounter for other preprocedural examination (principal); F11.10 Opioid abuse, uncomplicated
CPT/HCPCS: 99203

== ENCOUNTER → 2023-10-29 08:57 | Outpatient (BNVA) | payer OTHER, SELFPAY | PROVIDERS: PCP Nurse Practitioner Family; Visit Provider Nurse Practitioner | DX: Z01.818 Encounter for other preprocedural examination (principal); F11.10 Opioid abuse, uncomplicated; K92.1 Melena | CPT/HCPCS: 99202 ==

== ENCOUNTER 2023-11-04 12:55 | Outpatient (REF) | payer OTHER, SELFPAY ==
--- NOTE | ~2023-11-04 | XR_ITS ---
EXAMINATION: XR KNEE, LEFT CLINICAL INFORMATION: Left knee pain COMPARISON: None available. TECHNIQUE: Three views of the left knee. FINDINGS: Marginal osteophytes of all 3 compartments with medial compartment narrowing. No fracture or malalignment. No joint effusion. XR/XR knee LT 3V IMPRESSION: Moderate medial/patellofemoral and mild lateral compartment osteoarthritis with medial compartment narrowing.
== END 2023-11-04 12:56 | disposition home or self-care (01) ==
LOC: HO.HOSX 12:55
PROVIDERS: Visit Provider Orthopaedic Surgery
DX: M17.11 Unilateral primary osteoarthritis, right knee (principal)
CPT/HCPCS: 73562; 99202

== ENCOUNTER 2023-11-04 13:28 | Outpatient (AMB) | payer OTHER, SELFPAY ==
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
[2023-11-04 13:52] VITALS: BMI 35.5
== END 2023-11-04 14:19 | disposition home or self-care (01) ==
PROVIDERS: PCP Nurse Practitioner Family; Visit Provider Orthopaedic Surgery
DX: M17.11 Unilateral primary osteoarthritis, right knee (principal)
CPT/HCPCS: 99202

== ENCOUNTER 2023-11-25 14:23 | Outpatient (AMB) | payer OTHER, SELFPAY ==
--- NOTE | 2023-11-25 14:47 | MHC.OFFVIS ---
Intake Intake Visit Reasons: OV-Synvisc injection-left knee Intake Note: Ankit is a 47 yr old male, he is here for Synvisc gel injection on his left knee. He states he is still having pain more or so on the inner side of his knee. Patient signed consent. He describes his pain as sharp in nature. He would like to hold off on knee replacement surgery for as long as possible. He has had viscosupplementation injections in the past which gave him fairly good relief. First Aid Attendant Required: No Allergies No Known Allergies Allergy (Verified 11/25/23 14:50) Medication List - Last Reconciled 11/26/23 by Gerard Medellin MD aripiprazole 5 mg PO BEDTIME buprenorphine-naloxone 8-2 mg (Suboxone) film sublingual BID bupropion HCl 300 mg PO DAILY sod picosulf-mag ox-citric ac 10 mg-3.5 gram- 12 gram/160 mL (Clenpiq) 160 mL PO DAILY 2 doses tadalafil (Cialis) 10 mg PO DAILY 30 days [facility] Medical History Hx of gynecomastia Opiate abuse, episodic Chronic pain Dyslipidemia Adjustment disorder with mixed anxiety and depressed mood Surgical History History of left knee surgery Family History Mother History of lung cancer Maternal Grandmother Pancreatic cancer Social History Housing: Apartment Alcohol intake: current Alcohol intake frequency: a few times a month Patient Tobacco Use Status: Never used Tobacco Current occupational status: unemployed Current occupation: rt hand Cognitive needs: No Hearing needs: No Vision needs: No Physical Exam Const Other: Well-nourished well-developed very friendly male awake alert and oriented x3 in no acute distress Extrem Other: Bilateral lower extremity examination shows good capillary refill, no skin lesions noted, normal sensation light touch Left knee examination shows a moderate effusion, palpable crepitus with range of motion, pain with range of motion, range of motion from -3 degrees to 115 degrees, no instability Office Procedures Joint Injection/Drain Joint Injection/Drain Primary Site: left knee Prep: site was prepped using aseptic technique Injected: 1% plain lidocaine and other (48 mg of Synvisc One) Procedure: The patient tolerated the procedure well Coding - Large joint Procedure code (CPT) selection complete Results Reviewed Results Reviewed: X-rays of the patient's left knee show joint space narrowing, subchondral sclerosis, no acute bony abnormalities Assessment & Plan Assessment & Plan (1) Arthritis of left knee: Code(s): M17.12 - Unilateral primary osteoarthritis, left knee Plan Mr. Chawla presents with progressively worsening left knee pain due to degenerative joint disease. I had a lengthy discussion with the patient regarding the treatment options. He wishes to hold off on surgery for as long as possible. I agree with this plan. The risks and benefits of a Synvisc-One viscosupplementation injection were discussed at length with the patient. The patient wished to proceed. Prior to the injection 12 cc of clear fluid were aspirated from his left knee. He tolerated the injection well. He will continue with his home exercise program. He will follow up with me on an as-needed basis should his symptoms not plateau at an unacceptable level over the next few months. Feel free to call me at any time should questions regarding his orthopedic management arise. I spent 22 minutes in reviewing the patient's records and imaging studies, seeing the patient and documenting in the medical record. Orders: Orders AMB Joint Injection/Aspiration 11/25/23 M17.12 - Unilateral primary osteoarthritis, left knee Coding Level of Care Code Est Pt Level 2 (46167) Diagnoses Arthritis of left knee M17.12 CPT Codes Coding - Large joint: 30603 - Large joint ([id number])
== END 2023-11-25 15:25 | disposition home or self-care (01) ==
PROVIDERS: PCP Nurse Practitioner Family; Visit Provider Orthopaedic Surgery
DX: M17.12 Unilateral primary osteoarthritis, left knee (principal)
CPT/HCPCS: 20610

== ENCOUNTER → 2023-11-25 14:23 | Outpatient (BNVA) | payer OTHER, SELFPAY | PROVIDERS: PCP Nurse Practitioner Family; Visit Provider Orthopaedic Surgery | DX: M17.12 Unilateral primary osteoarthritis, left knee (principal) | CPT/HCPCS: 20610; J7325 ==

== ENCOUNTER 2023-12-14 08:43 | Outpatient (REF) | payer OTHER, SELFPAY ==
[2023-12-14 11:39] LABS: Appearance Urine Clear; Color Urine Dark Yellow; Glucose Urine UA Negative (Negative); Leukocyte Esterase Urine Negative (Negative); Nitrite Urine Negative (Negative); Specific Gravity - Urine 1.025 (1.005-1.025); UMIC TRIGGER UACC YES; Urine Blood Small (1+) (Negative); Urine Ketones Negative (Negative); Urine Protein Negative (Neg-Trace)
[2023-12-14 11:44] LABS: MANUAL DIFF FLAG NO
[2023-12-14 11:55] LABS: Bacteria Urine None Seen (None Seen); Hyaline Casts Urine 0-2 /LPF (0-2); Squamous Epithelial Cell Urine 0-2 /HPF (0-2); WBC Urine 0-5 /HPF (0-5)
[2023-12-14 11:58] LABS: Basophils Percent Auto 0.6 % (0-2); Eosinophils Absolute Auto 0.4 X10*3/uL (0.0-0.4); Eosinophils Percent Auto 7.9 % (0-4); Hematocrit 40.8 % (42.0-52.0); Hemoglobin 13.7 g/dl (14.0-18.0); Imm Gran Abs Auto 0.01 X10*3/uL (0.00-0.03); Imm Gran Pct Auto 0.2 % (0.0-0.4); Lymphocytes Absolute Auto 1.5 X10*3/uL (1.2-4.9); Lymphocytes Percent Auto 27.3 % (20-40); Mean Corpuscular HGB Conc 33.6 g/dl (31.0-36.0); Mean Corpuscular Hemoglobin 27.6 pg (27.0-33.0); Mean Corpuscular Volume 82.1 fL (80.0-98.0); Mean Platelet Volume 11.6 fL (9.4-12.4); Monocytes Absolute Auto 0.4 X10*3/uL (0.1-1.2); Monocytes Percent Auto 7.5 % (2-11); Neutrophils Percent Auto 56.5 % (45-73); Platelet Count 156 X10*3/uL (160-400); Red Blood Count 4.97 X10*6/uL (4.60-5.80); Red Cell Distribution Width 12.9 % (11.0-16.0); White Blood Count 5.4 X10*3/uL (4.8-10.8)
[2023-12-14 12:27] LABS: Alanine Aminotransferase 28 U/L (0-40); Albumin Level 4.3 g/dL (3.5-5.0); Alkaline Phosphatase 82 U/L (39-117); Anion Gap 11 (12-20); Aspartate Amino Transferase 30 U/L (5-37); Bilirubin Total 0.4 mg/dL (0.0-1.0); Blood Urea Nitrogen 23 mg/dL (9-16); Calcium 9.3 mg/dL (8.4-10.2); Carbon Dioxide 28 mmol/L (22-29); Chloride 107 mmol/L (96-108); Cholesterol 218 mg/dL (<200); Estimated Glomerular Filt Rate > 60; Glucose Fasting 111 mg/dL (60-99); Glucose Random 112 mg/dL (60-115); HDL Cholesterol 50 mg/dL (>40); LDL Cholesterol Calculated 153 mg/dL (<100); Sodium 142 mmol/L (135-145); Total Protein 7.2 g/dL (6.5-8.0); Triglycerides 77 mg/dL (<150)
[2023-12-19 10:13] LABS: Testosterone, Free 33.1 pg/mL (35.0-155.0); Testosterone, Total 245 ng/dL (250-1100)
== END 2023-12-14 08:44 | disposition home or self-care (01) ==
LOC: HO.HMGCLDS 08:43
PROVIDERS: Urology; PCP Nurse Practitioner Family; Referring Provider Nurse Practitioner; Visit Provider Nurse Practitioner Family
DX: Z01.818 Encounter for other preprocedural examination (principal); Z00.00 Encounter for general adult medical examination without abnormal findings; F11.10 Opioid abuse, uncomplicated; N52.9 Male erectile dysfunction, unspecified
CPT/HCPCS: 36415; 80053; 80061; 81001; 84402; 84403; 84443; 85025

== ENCOUNTER 2024-01-19 08:24 | Outpatient (REF) | payer OTHER, SELFPAY ==
--- NOTE | ~2024-01-19 | CT_ITS ---
EXAMINATION: CT ABDOMEN AND PELVIS WITHOUT AND WITH CONTRAST CLINICAL INFORMATION: Microscopic hematuria COMPARISON: None available. TECHNIQUE: Noncontrast CT of the abdomen and pelvis is performed followed by split bolus contrast-enhanced images using 85 mL Omnipaque 350 contrast.? Postcontrast imaging is performed during the combined nephrogram and excretion phase. Sagittal and coronal reformatted images were obtained on the technologist's workstation for both the precontrast and postcontrast phases. This CT examination was performed using dose optimization techniques as appropriate, variously including the following: *Automated exposure control *Adjustment of mA and/or kV according to patient size (this includes techniques or standardized protocols for targeted exams where dose is matched to indication/reason for exam; i.e. extremities or head) *Use of iterative reconstruction technique DLP: 1184.21 mGy-cm FINDINGS: LUNG BASES: Bilateral lung bases are clear. LIVER: No focal lesion is seen in the liver. GALLBLADDER AND BILIARY TREE: Gallbladder appears unremarkable without calcified stones. Common bile duct is not dilated. SPLEEN: The spleen is normal in size without focal lesion. PANCREAS: The pancreas appears unremarkable. ADRENAL GLANDS: Adrenal glands are normal in size without focal lesion bilaterally. KIDNEYS: Right kidney measures 11.4 cm in vertical length. Left kidney measures 11.7 cm in vertical length. Precontrast images show no calcified renal stones. Post contrast nephrographic phase images show normal uniform bilateral nephrograms. Excretory phase images show normal excretion of contrast into bilateral renal calyces, pelvises and ureters without filling defects. BOWELS: There is mild fecal distention of the descending colon. RETROPERITONEUM: No abnormally enlarged retroperitoneal lymph nodes, mass or hematoma could be seen. BLOOD VESSELS: Abdominal aorta is normal in size and smoothly patent. ABDOMINAL WALL: Small umbilical hernia containing mesenteric fat is seen. PERITONEUM: There was no ascites. There were no abdominal peritoneal inflammatory changes seen. No free peritoneal air was seen. No abnormally enlarged mesenteric lymph nodes are found. BONES: There is mild L1-L2 levoscoliosis. Advanced L1-L2 to L4-L5 degenerative lumbar disc disease is present. No fracture or dislocation. No focal bone lesion diagnostic of metastatic disease could be seen in the lumbar region. EXAMINATION: CT pelvis. TECHNIQUE: Multiple axial images were obtained from iliac crest to the inferior pubic rami before and following the administration of 85 mL of Omnipaque 350. Coronal and sagittal images were reconstructed from axial image data. Maximum intensity projection images of the pelvis were also reconstructed. Dose reduction technique: One or more of the following individual dose optimization techniques were used including: Automated exposure control, mA and/or kV were adjusted according to patient size or iterative reconstruction. FINDINGS: URINARY BLADDER AND URETERS: Precontrast images show no calcified urinary bladder stone or distal ureteric stones. Urinary bladder fills normally with contrast without filling defects. There is normal visualization of bilateral distal ureters which are normal in size. BOWELS: There is mild fecal distention of descending and sigmoid colon. Rectum is filled with air. Appendix cannot be identified. GENITAL ORGANS: Seminal vesicles are unremarkable. Prostate gland is normal. LYMPH NODES: No abnormally enlarged iliac or inguinal lymph nodes are seen. PERITONEUM: No inflammatory changes, ascites or free peritoneal air are found in the pelvis. BONES: No fracture or dislocation. No focal bone lesion diagnostic of metastatic disease could be seen in the pelvis. CT/CT urogram IMPRESSION: 1. No evidence of renal stones, solid mass lesions or ureteric obstruction. 2. No urinary bladder stone, mass lesions or distal ureteric stone are found. 3. Small umbilical hernia containing mesenteric fat is found. 4. No pelvic mass lesion, abscess or lymphadenopathy is seen.
[2024-01-19] MEDS: iohexoL 350 MG/ML 100 ML INFUS..BTL 85 ML IV (09:16)
== END 2024-01-19 08:25 | disposition home or self-care (01) ==
LOC: HO.CT 08:24
PROVIDERS: PCP Nurse Practitioner Family; Visit Provider Nurse Practitioner Family
DX: R31.29 Other microscopic hematuria (principal)
CPT/HCPCS: 74178; Q9967

== ENCOUNTER 2024-02-07 08:47 | Outpatient (AMB) | payer OTHER, SELFPAY ==
--- NOTE | 2024-02-07 08:49 | A.OFFVIS_ITS ---
Intake Intake Visit Reasons: Microscopic hematuria Intake Note: Patient presents today for a follow-up on microscopic hematuria Meds- Tadalafil Allergies to Antibiotic- No Known Allergies Blood Thinner- None Animal Laboratory Technician Required: No Accompanied by: Self / Same As Patient Allergies No Known Allergies Allergy (Verified 02/07/24 08:50) Medication List - Last Reconciled 02/07/24 by Waldo Wilson MD aripiprazole 5 mg PO BEDTIME atorvastatin 20 mg PO BEDTIME buprenorphine-naloxone 8-2 mg (Suboxone) film sublingual BID bupropion HCl 300 mg PO DAILY sod picosulf-mag ox-citric ac 10 mg-3.5 gram- 12 gram/160 mL (Clenpiq) 160 mL PO DAILY 2 doses tadalafil (Cialis) 10 mg PO DAILY 30 days HPI HPI Comments History of Present Illness Details Ankit is a 48-year-old male who presents today to the office for evaluation for microscopic hematuria. I reviewed CT urogram that was ordered by his PCP. Urinary tract is within normal limits. The patient was seen by me in Jul, 2023, he has not been followed by Dr. Chen since that date. The patient is on tadalifil 10 mg qd to qod for ED. He states he has been tired and review of serum F/T testosterone levels are low. The patient is on subloxone and states he has been taking OTC neugenics for low T, for about a month. I have discussed fu office cysto and repeat Testosterone level prior to testosterone replacement therapy. Review of labs: 11/26/2020--Test - 674, 12/14/23- Test- 245 Review of chart: 08/11/2023? He is followed today for erectile dysfunction. He has seen Siddhartha Canas on 05/12/2023 for erectile dysfunction and has been prescribe daily Tadalafil 10 mg. He is here for 6 month FU. He has been taking tadalafil 10 mg as prescribed. Patient states that he noticed blood in the stool in the past. Medication list reviewed and reconciled with the patient. Evaluation today?UA? leukocytes: negative; blood: trace. Plan:PSA, fasting glucose, LH, FSH, and fasting testosterone was ordered. Referred to GI for the concerns of haemorrhoids. Follow-up with Dr. Chen in 3 months. 02/07/24: PLAN Sched office cystoscopy, urine for cytology instucted to stop OTC Neugenics repeat F/T Testosterone, LH, FSH PFSH Medical History Hx of gynecomastia Opiate abuse, episodic Chronic pain Dyslipidemia Adjustment disorder with mixed anxiety and depressed mood Surgical History History of left knee surgery Family History Mother History of lung cancer Maternal Grandmother Pancreatic cancer Social History Housing: Apartment Alcohol intake: current Alcohol intake frequency: a few times a month Patient Tobacco Use Status: Never used Tobacco Current occupational status: unemployed Current occupation: rt hand Cognitive needs: No Hearing needs: No Vision needs: No Review of Systems Const All systems reviewed & are unremarkable except as noted in HPI and below Reports no additional complaints Eyes Reports no additional complaints ENT Reports no additional complaints Card Denies dyspnea Resp Denies cough and Denies dyspnea GI Reports no additional complaints Musc Reports no additional complaints Skin/Breast Denies unusual bruising Neuro Reports no additional complaints Psych Reports no additional complaints Endo Reports no additional complaints Kye/Lymph Reports no additional complaints Aller/Immun Reports no additional complaints Results AMB Urinalysis, Automated UA Leukoctes 0 Myriam/uL Last Edit by Bessy Breen CMA on 02/07/24 09 :04 UA Nitrite Negative Last Edit by Bessy Breen CMA on 02/07/24 09: 04 UA Urobilinogen 0.2 mg/dL Last Edit by Bessy Breen CMA on 4 09:04 UA Protein 30 mg/dL Last Edit by Bessy Breen CMA on 02/07/24 09:0 4 UA pH 6.0 Last Edit by Bessy Breen [facility] on 02/07/24 09:04 UA Blood 200 Luciano/uL Last Edit by Bessy Breen [facility] on 02/07/24 09:0 4 UA Specific [place] 1.030 Last Edit by Bessy Breenbobbi Breen, [facility] on 09:04 UA Ketone Positive Last Edit by Bessy Breen [facility] on 02/07/24 09:0 4 5mg/dl Bessy Breenbobbi Breen 02/07/24 09:04 UA Bilirubin 1 mg/dL Last Edit by Bessy Breen [facility] on 02/07/24 09: 04 UA Glucose 0 mg/dL Last Edit by Bessy Breen [facility] on 02/07/24 09:04 Results Reviewed Results Reviewed: Laboratory Last Values Urine pH (Auto) 6.0 02/07/24 08:51 Specific [place] (Auto) 1.030 02/07/24 08:51 Urine Protein (Auto) 30 mg/dL 02/07/24 08:51 Glucose (UA)(Auto) 0 mg/dL 02/07/24 08:51 Urine Ketones (Auto) Positive 02/07/24 08:51 Urine Blood (Auto) 200 Luciano/uL 02/07/24 08:51 Urine Nitrite (Auto) Negative 02/07/24 08:51 Urine Bilirubin (Auto) 1 mg/dL 02/07/24 08:51 Urine Urobilinogen (Auto) 0.2 mg/dL 02/07/24 08:51 Leukocyte Esterase (Auto) 0 Myriam/uL 02/07/24 08:51 Date of Service: 01/19/24 EXAMINATION: CT ABDOMEN AND PELVIS WITHOUT AND WITH CONTRAST CLINICAL INFORMATION: Microscopic hematuria COMPARISON: None available. TECHNIQUE: Noncontrast CT of the abdomen and pelvis is performed followed by split bolus contrast-enhanced images using 85 mL Omnipaque 350 contrast.? Postcontrast imaging is performed during the combined nephrogram and excretion phase. Sagittal and coronal reformatted images were obtained on the technologist's workstation for both the precontrast and postcontrast phases. This CT examination was performed using dose optimization techniques as appropriate, variously including the following: *Automated exposure control *Adjustment of mA and/or kV according to patient size (this includes techniques or standardized protocols for targeted exams where dose is matched to indication/reason for exam; i.e. extremities or head) *Use of iterative reconstruction technique DLP: 1184.21 mGy-cm FINDINGS: LUNG BASES: Bilateral lung bases are clear. LIVER: No focal lesion is seen in the liver. GALLBLADDER AND BILIARY TREE: Gallbladder appears unremarkable without calcified stones. Common bile duct is not dilated. SPLEEN: The spleen is normal in size without focal lesion. PANCREAS: The pancreas appears unremarkable. ADRENAL GLANDS: Adrenal glands are normal in size without focal lesion bilaterally. KIDNEYS: Right kidney measures 11.4 cm in vertical length. Left kidney measures 11.7 cm in vertical length. Precontrast images show no calcified renal stones. Post contrast nephrographic phase images show normal uniform bilateral nephrograms. Excretory phase images show normal excretion of contrast into bilateral renal calyces, pelvises and ureters without filling defects. BOWELS: There is mild fecal distention of the descending colon. RETROPERITONEUM: No abnormally enlarged retroperitoneal lymph nodes, mass or hematoma could be seen. BLOOD VESSELS: Abdominal aorta is normal in size and smoothly patent. ABDOMINAL WALL: Small umbilical hernia containing mesenteric fat is seen. PERITONEUM: There was no ascites. There were no abdominal peritoneal inflammatory changes seen. No free peritoneal air was seen. No abnormally enlarged mesenteric lymph nodes are found. BONES: There is mild L1-L2 levoscoliosis. Advanced L1-L2 to L4-L5 degenerative lumbar disc disease is present. No fracture or dislocation. No focal bone lesion diagnostic of metastatic disease could be seen in the lumbar region. EXAMINATION: CT pelvis. TECHNIQUE: Multiple axial images were obtained from iliac crest to the inferior pubic rami before and following the administration of 85 mL of Omnipaque 350. Coronal and sagittal images were reconstructed from axial image data. Maximum intensity projection images of the pelvis were also reconstructed. Dose reduction technique: One or more of the following individual dose optimization techniques were used including: Automated exposure control, mA and/or kV were adjusted according to patient size or iterative reconstruction. FINDINGS: URINARY BLADDER AND URETERS: Precontrast images show no calcified urinary bladder stone or distal ureteric stones. Urinary bladder fills normally with contrast without filling defects. There is normal visualization of bilateral distal ureters which are normal in size. BOWELS: There is mild fecal distention of descending and sigmoid colon. Rectum is filled with air. Appendix cannot be identified. GENITAL ORGANS: Seminal vesicles are unremarkable. Prostate gland is normal. LYMPH NODES: No abnormally enlarged iliac or inguinal lymph nodes are seen. PERITONEUM: No inflammatory changes, ascites or free peritoneal air are found in the pelvis. BONES: No fracture or dislocation. No focal bone lesion diagnostic of metastatic disease could be seen in the pelvis. IMPRESSION: 1. No evidence of renal stones, solid mass lesions or ureteric obstruction. 2. No urinary bladder stone, mass lesions or distal ureteric stone are found. 3. Small umbilical hernia containing mesenteric fat is found. 4. No pelvic mass lesion, abscess or lymphadenopathy is seen. Assessment & Plan Assessment & Plan (1) Erectile dysfunction: Code(s): N52.9 - Male erectile dysfunction, unspecified (2) Microscopic hematuria: Code(s): R31.29 - Other microscopic hematuria (3) Low testosterone level in male: Code(s): R79.89 - Other specified abnormal findings of blood chemistry (4) Hypogonadism in male: Code(s): E29.1 - Testicular hypofunction (5) Screening PSA (prostate specific antigen): Code(s): Z12.5 - Encounter for screening for malignant neoplasm of prostate Plan Sched office cystoscopy, urine for cytology instucted to stop OTC Neugenics repeat F/T Testosterone, LH, FSH Orders: Orders Urine Cytology Today R31.29 - Other microscopic hematuria Glucose Fasting Today E29.1 - Testicular hypofunction, N52.9 - Male erectile dysfunction, unspecified, R79.89 - Other specified abnormal findings of blood chemistry AMB Urinalysis Automated Today R33.9 - Retention of urine, unspecified Lutenizing Hormone Today E29.1 - Testicular hypofunction, N52.9 - Male erectile dysfunction, unspecified PSA,Total (Free>4and<10) Today Z12.5 - Encounter for screening for malignant neoplasm of prostate Sex Hormone Binding Globulin Today E29.1 - Testicular hypofunction, N52.9 - Male erectile dysfunction, unspecified, R79.89 - Other specified abnormal findings of blood chemistry Testosterone, Free/Total Today E29.1 - Testicular hypofunction, N52.9 - Male erectile dysfunction, unspecified, R79.89 - Other specified abnormal findings of blood chemistry Follicle Stimulating Hormone Today E29.1 - Testicular hypofunction, N52.9 - Male erectile dysfunction, unspecified, R79.89 - Other specified abnormal findings of blood chemistry Patient Instructions: The patient had an opportunity to ask questions regarding treatment plan. All questions were answered. Imaging, Laboratory studies and physical exam results w ere discussed and reviewed in detail. No major barriers to understanding were identified. The patient expressed understanding and agreement with the above treatment plan. The patient is aware they should contact our office by phone for worsening of their current condition or the appearance of new symptoms. Compliance is encouraged with any medications and followup testing that is ordered. It is a privilege to be allowed the opportunity to participate in the urologic care of your patient. If you have any questions or concerns regarding treatment for the above conditions please do not hesitate to contact me. The office telephone contact is [phone]. This note is constructed in part using voice recognition software. While every effort has been made to ensure accuracy competitive athlete errors may have been included. Yours sincerely, Waldo Wilson MD Coding Level of Care Code Est Pt Level 4 (93708) Diagnoses Erectile dysfunction N52.9 Microscopic hematuria R31.29 Low testosterone level in male R79.89 Hypogonadism in male E29.1 Screening PSA (prostate specific antigen) Z12.5
== END 2024-02-07 09:42 | disposition home or self-care (01) ==
PROVIDERS: PCP Nurse Practitioner Family; Visit Provider Urology
DX: N52.9 Male erectile dysfunction, unspecified (principal); R31.29 Other microscopic hematuria; R79.89 Other specified abnormal findings of blood chemistry; E29.1 Testicular hypofunction; Z12.5 Encounter for screening for malignant neoplasm of prostate; R33.9 Retention of urine, unspecified
CPT/HCPCS: 99214

== ENCOUNTER 2024-02-07 08:47 | Outpatient (REF) | payer OTHER, SELFPAY ==
[2024-02-07 16:37] LABS: Urine Cytology See Pathology rpt
== END 2024-02-07 08:48 | disposition home or self-care (01) ==
LOC: HO.LAB 08:47
PROVIDERS: PCP Nurse Practitioner Family; Visit Provider Urology
DX: R31.29 Other microscopic hematuria (principal)
CPT/HCPCS: 81003; 88112; 99212

== ENCOUNTER 2024-03-29 08:33 | Outpatient (AMB) | payer OTHER, SELFPAY ==
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
[2024-03-29 08:46] VITALS: BP 140/80; PULSE 77; O2SAT 96; BMI 35.4
== END 2024-03-29 11:56 | disposition home or self-care (01) ==
PROVIDERS: PCP Nurse Practitioner Family; Visit Provider Nurse Practitioner Family
DX: Z91.89 Other specified personal risk factors, not elsewhere classified (principal); E78.5 Hyperlipidemia, unspecified; I10 Essential (primary) hypertension
CPT/HCPCS: 99213